=== PATIENT | female | born 1965 | race Caucasian/White ===

== ENCOUNTER 2019-03-08 06:35 | Day surgery (SDC) | payer BC ==
[2019-03-03 16:12] VITALS: BMI 21.2
[2019-03-08] MEDS ORDERED: GENTAMICIN SO4 80 MG/2 ML VIAL ONE (07:25)
[2019-03-08] MEDS ORDERED: ceFAZolin SODIUM 1 GM VIAL ONE ×2 (07:25→09:43)
[2019-03-08] MEDS ORDERED: LIDOCAINE 1% P/F 10 MG/ML VIAL ONE (07:25)
[2019-03-08] MEDS ORDERED: SODIUM BICARBONATE 8.4% 50 MEQ/50 ML VIAL ONE (07:26)
[2019-03-08] MEDS ORDERED: LIDOCAINE 1%/EPI 1:100000 (20 ML MULTI DOSE VIAL) ONE (07:26)
[2019-03-08] MEDS ORDERED: EPINEPHrine/PF 1 MG/1 ML (1:1,000) AMPULE ONE (07:26)
[2019-03-08] MEDS ORDERED: LIDOCAINE HCL 1% PRESERVATIVE FREE - 30ML VIAL ONE ×2 (07:27→07:35)
[2019-03-08] MEDS ORDERED: SCOPOLAMINE HYDROBROMIDE 1 PATCH PATCH.TD72 ONE (07:32)
[2019-03-08] MEDS ORDERED: MIDAZOLAM HCL 2 MG/2 ML SINGLE DOSE VIAL ONE (07:38)
[2019-03-08] MEDS ORDERED: SUCCINYLCHOLINE CHLORIDE 200 MG/10 ML VIAL ONE (07:38)
[2019-03-08] MEDS ORDERED: PROPOFOL 20 ML ONE ×4 (07:38)
[2019-03-08] MEDS ORDERED: fentaNYL CITRATE 250 MCG/5 ML VIAL ONE (07:38)
[2019-03-08] MEDS ORDERED: ePHEDrine SULFATE 50 MG/1 ML AMPULE ONE (08:15)
[2019-03-08] MEDS ORDERED: LIDOCAINE HCL/PF 2% SDV 5ML VIAL ONE (09:43)
[2019-03-08] MEDS ORDERED: ONDANSETRON 4 MG/2 ML VIAL ONE (09:43)
[2019-03-08] MEDS ORDERED: DEXAMETHASONE SOD PHOSPHATE 4 MG/1 ML VIAL ONE (09:43)
[2019-03-08] MEDS ORDERED: LIDOCAINE HCL 2% JELLY (5 ML/TUBE) ONE (09:43)
[2019-03-08] MEDS ORDERED: KETOROLAC TROMETHAMINE 30 MG/1 ML VIAL ONE (09:43)
[2019-03-08] MEDS ORDERED: BUPIVACAINE HCL/PF 2.5 MG/ML - 30 ML VIAL IJ ONE (10:23)
[2019-03-08] MEDS ORDERED: PROMETHAZINE HCL 25 MG/1 ML VIAL IVPUSH PRN (11:48)
[2019-03-08] MEDS ORDERED: ONDANSETRON 4 MG/2 ML VIAL IVPUSH PRN (11:48)
[2019-03-08] MEDS ORDERED: oxyCODONE HCL 5 MG TABLET PO PRN ×2 (11:48)
[2019-03-08 13:42] VITALS: PULSE 69; TEMP 98
[2019-03-08 16:23] VITALS: BP 96/53
--- NOTE | 2019-03-09 13:17 | OP ---
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 PROCEDURE PERFORMED: 1. Bilateral implant exchange. 2. Bilateral open capsulectomies. 3. Bilateral AlloDerm matrix placement and fat transfer to breast. DRAINS: Two round Victorino drains. COMPLICATIONS: None. ESTIMATED BLOOD LOSS: 60 mL. FLUIDS ADMINISTERED: Crystalloid solution 1.2 L. ANESTHESIA: General laryngeal mask anesthesia. DESCRIPTION OF PROCEDURE: The patient was brought to the operating room and placed supine on the operating table. Sequential compression devices were affixed to the lower extremities. After induction of general laryngeal mask anesthesia, the patient's abdomen and chest were prepped with topical chlorhexidine solution, draped with sterile drapes. Once this was completed, an appropriate time-out was performed identifying the patient, the nature of the procedure allowing all operative participants to ask questions and/or raise concerns as indicated. With this concluded, the sterile surgical marking pen was used to refresh the preoperative outlines. Beginning on the patient's right side, the inframammary fold incision was opened with a No. 10 blade. This allowed for access to the subcutaneous space, which was dissected down until the previous AlloDerm placement was identified. This was opened in a transverse direction, and the intact implant was removed. This was a textured 410 Allergan implant. The pocket was copiously irrigated. The juncture of the previously placed AlloDerm and the pectoralis major muscle was identified and scored with the Bovie cautery. Using the PEAK PlasmaBlade, a neopectoral pocket was created above the pectoralis major muscle switching the pocket location from behind to in front of the muscle. This dissection proceeded in a [id number] direction. With this completed, attention was turned to the left side where a previous incision was also accessed with a No. 10 blade sharply dividing the skin and subcutaneous tissues and dissecting in the subcutaneous space. Again, the implant was removed on the left side. It was an intact 410 implant, and a neopectoral pocket was created by scoring the AlloDerm pectoralis major muscle interface and dissecting in a superior direction. Bilateral open capsulectomies along the lower border were completed and sent as specimens. With this completed, new AlloDerm sheets were tacked superiorly with interrupted 2-0 Vicryl sutures. These were 16 x 20 extra thick sheets first on the right and then the left side respectively. Interrupted 2-0 Vicryl was used to tack around the perimeter of these AlloDerm sheets, and once this was completed, 2 symmetric 385-mL Natrelle Inspira SoftTouch breast implants were placed using a Corado Funnel. Once they were placed using the Corado Funnel, -mm round Victorino drains were placed through remote stab incisions, which were covered with 3-0 nylon. A layered closure of the breast inframammary incisions was then performed with interrupted 3-0 Monocryl for the deep dermal layer followed by a running 4-0 Biosyn subcuticular suture. Harvesting of fat from the flank and abdominal area was used with a Power Assisted Liposuction and the Revolve system harvesting approximately 150 mL of lipoaspirate, which was then injected into the superior pole of the breast. Fluff gauze dressings, ABD pads, and a surgical bra were placed. The patient was successfully extubated and transferred to the post anesthesia care unit in stable condition. WILBER FLAHERTY M.D. [id number]
--- NOTE | 2019-03-10 15:26 | PATH ---
Surgical Pathology Report Patient Name: ALFONSO TABARES [facility]. Rec. #: [id number] /Age/Gender: 1965 (Age: 53) / F Account: [id number] Location: [facility] AMBULATORY Taken: 03/08/2019 Received: 03/08/2019 Reported: 03/10/2019 Physicians: Romero Flaherty Specimen(s) Received A: RIGHT BREAST IMPLANT B: LEFT BREAST IMPLANT C: RIGHT BREAST CAPSULE Clinical History Breast cancer Final Diagnosis A. IMPLANT, RIGHT BREAST, REMOVAL: IMPLANT, DESCRIBED (GROSS EXAMINATION ONLY). B. IMPLANT, LEFT BREAST, REMOVAL: IMPLANT, DESCRIBED (GROSS EXAMINATION ONLY). C. CAPSULE, RIGHT BREAST, CAPSULECTOMY: FIBROUS CAPSULE SHOWING MILD ACUTE INFLAMMATION. Electronically Signed Siobhan James M.D. Gross Description A. Received without fixative, labeled "right breast implant" is a 15 x 15 x 4 cm clear rubbery intact breast implant. For gross examination only. B. Received without fixative, labeled "left breast implant" is a 15 x 15 x 4 cm clear rubbery intact breast implant. For gross examination only. C. Received in formalin, labeled "right breast capsule" are two portions of higuera-white fibrous tissue measuring 4.5 x 1.2 cm and 4.7 x 1.4 cm. Analytical Scientist tissue is submitted in one cassette. AE/03/09/2019 ebram/03/09/2019
== END 2019-03-08 14:45 | disposition home or self-care (01) ==
LOC: FASU 06:35
PROVIDERS: ATTEND Surgery Plastic and Reconstructive Surgery
PROC: 0HUV0KZ Supplement Bilateral Breast with Nonautologous Tissue Substitute, Open Approach (ICD-10-PCS; 2019-03-08)
PROC: 0HPU0JZ Removal of Synthetic Substitute from Left Breast, Open Approach (ICD-10-PCS; principal; 2019-03-08 08:24)
PROC: 0HPT0JZ Removal of Synthetic Substitute from Right Breast, Open Approach (ICD-10-PCS; 2019-03-08 08:24)
PROC: 0HRV0JZ Replacement of Bilateral Breast with Synthetic Substitute, Open Approach (ICD-10-PCS; 2019-03-08 08:24)
DX: M95.4 Acquired deformity of chest and rib (principal); Z90.13 Acquired absence of bilateral breasts and nipples; N65.1 Disproportion of reconstructed breast; T85.44XA Capsular contracture of breast implant, initial encounter; Y82.8 Other medical devices associated with adverse incidents; Y92.9 Unspecified place or not applicable; Z98.82 Breast implant status
CPT/HCPCS: 88300-TC; 88304-TC; 94760